=== PATIENT | female | born 1980 | race African-American/Black ===

== ENCOUNTER 2021-03-27 09:12 | Emergency (ER) | payer SELFPAY ==
[~2021-03-27] VITALS: Ht 165.1 cm; Wt 81.5 kg
[2021-03-27] MEDS ORDERED: KETOROLAC 60 MG/2 ML VIAL. IM ONE (09:45)
[2021-03-27] MEDS ORDERED: ORPHENADRINE CITRATE 60 MG/2 ML VIAL. IM ONE (09:45)
--- NOTE | 2021-03-27 09:52 | PHYS DOC ---
Past Medical History Past Medical History: No Pertinent History Past Surgical History: Tubal ligation Smoking Status: Current Every Day Smoker Alcohol Use: None Drug Use: None General Adult EDM: Chief Complaint: BACK PAIN OR INJURY HPI: HPI: Patient is a 40-year-old female who presents to the emergency department for right lower back pain that radiates down her leg. Pain started after she slipped and fell carrying groceries 1 month ago. She rates her pain 10 out of 10. No treatment prior to arrival. Patient denies any loss of bowel or bladder, saddle anesthesias, numbness or tingling in her extremities, urinary symptoms. Review of Systems: Review of Systems: : See HPI Musculoskeletal: See HPI Neurologic: See HPI Heart Score: C/O Chest Pain: N/A Risk Factors: Risk Factors: DM, Current or recent (<one month) smoker, HTN, HLP, family history of CAD, obesity. Risk Scores: Score 0 - 3: 2.5% MACE over next 6 weeks - Discharge Home Score 4 - 6: 20.3% MACE over next 6 weeks - Admit for Clinical Observation Score 7 - 10: 72.7% MACE over next 6 weeks - Early Invasive Strategies Allergies: Allergies: Allergies Coded Allergies Type Severity Reaction Last Updated Verified Penicillins Allergy Intermediate 04/19/15 Yes Physical Exam: PE: Constitutional: Well developed, well nourished, no acute distress, non-toxic appearance. [] HENT: Normocephalic, atraumatic, bilateral external ears normal, oropharynx moist, no oral exudates, nose normal. [] Eyes: PERRL, EOMI, conjunctiva normal, no discharge. [] Neck: Normal range of motion, no tenderness, supple, no stridor. [] Cardiovascular:Heart rate regular rhythm, no murmur [] Lungs & Thorax: Bilateral breath sounds clear to auscultation [] Abdomen: Bowel sounds normal, soft, no tenderness, no masses, no pulsatile masses. [] Skin: Warm, dry, no erythema, no rash. [] Back: No bony spinal tenderness, normal range of motion, positive right straight leg raise Extremities: No tenderness, no cyanosis, no clubbing, ROM intact, no edema. [] Neurologic: Alert and oriented X 3, normal motor function, normal sensory function, no focal deficits noted. [] Psychologic: Affect normal, judgement normal, mood normal. [] Current Patient Data: Labs: Laboratory Tests Test 03/27/21 09:42 03/27/21 09:45 Urine Collection Type Void Urine Color Yellow Urine Clarity Clear Urine pH 6.5 Urine Specific [place] 1.020 Urine Protein Negative mg/dL Urine Glucose (UA) Negative mg/dL Urine Ketones (Stick) Negative mg/dL Urine Blood Negative Urine Nitrite Negative Urine Bilirubin Negative Urine Urobilinogen Dipstick 0.2 mg/dL Urine Leukocyte Esterase Moderate Urine RBC Occ /HPF Urine WBC 11-20 /HPF Urine Squamous Epithelial Cells Mod /LPF Urine Bacteria Few /HPF Urine Mucus Marked /LPF Bedside Urine HCG, Qualitative Hcg negative Current Medications Medications (Trade) Dose Ordered Sig/Jesse Route PRN Reason Start Time Stop Time Status Last Admin Dose Admin Orphenadrine Citrate (Norflex) 60 mg 1X ONCE IM 03/27/21 09:45 03/27/21 09:48 DC 03/27/21 10:25 Ketorolac Tromethamine (Toradol Im) 60 mg 1X ONCE IM 03/27/21 09:45 03/27/21 09:48 DC 03/27/21 10:24 Vital Signs: Vital Signs Date Time Temp Pulse Resp B/P (MAP) Pulse Ox O2 Delivery O2 Flow Rate FiO2 03/27/21 09:23 98.3 86 12 111/70 (84) 100 Room Air 98.3 EKG: EKG: [] Radiology/Procedures: Radiology/Procedures: []REASON: r. lower back pain, post fall PROCEDURE: CT LUMBAR SPINE WO CONTRAST EXAM: Lumbar spine CT without contrast. HISTORY: Pain status post fall. TECHNIQUE: Computed tomographic images of the lumbar spine were obtained without contrast. Multiplanar reformatting was performed. *One or more of the following individualized dose reduction techniques were utilized for this examination: 1. Automated exposure control. 2. Adjustment of the mA and/or kV according to patient size. 3. Use of iterative reconstruction technique. COMPARISON: None. FINDINGS: There is a transitional lumbosacral segment. Based on the presence of suspected hypoplastic T12 ribs, this transitional segment is considered a partially lumbarized L5 segment with rudimentary L5-S1 disc. There is minimal lumbar levoscoliosis. There is no significant listhesis. There is mild multilevel endplate remodeling. There is a small round lucent lesion within the anterior aspect of L5, appearance of which favors a tiny hemangioma. There is a tiny bone island within the left iliac bone. There is subchondral sclerosis and vacuum phenomenon involving the sacroiliac joints. There are subchondral lucencies involving the bilateral iliac bones suggesting a component of sacroiliitis. There is a partially calcified lesion within the right adnexa adjacent to the right aspect of the uterine fundus. This appears to be separate from the uterine fundus and is likely ovarian rather than due to a pedunculated uterine fibroid. At T12-L1 and L1-L2, there is no stenosis. At L2-L3, there is a disc bulge. There is mild bilateral facet arthropathy. There is mild central canal stenosis. At L3-L4, there is a disc bulge. There is mild left greater than right facet arthropathy. There is mild central canal stenosis. At L4-L5, there is a posterior central disc protrusion superimposed on a disc bulge and endplate remodeling. There is a posterior L5 superior endplate depression likely due to a Schmorl's node. There is mild right facet arthropathy. There is mild left foraminal stenosis. There is moderate central canal stenosis. At L5-S1, there is a rudimentary disc. There is no stenosis. IMPRESSION: 1. Degenerative change involving the lumbar spine, described in detail above. This results in mild central canal stenosis at L2-L3 and L3-L4 and mild left foraminal and moderate central canal stenosis at L4-L5. 2. Transitional lumbosacral segment, considered a partially sacralized L5 segment for this dictation. Based on this numbering system, there are hypoplastic T12 ribs. This is a normal variant. 3. Findings suggesting a component of sacroiliitis. 4. Small partially calcified lesion within the right adnexa, likely ovarian in etiology. This can be further characterized with a pelvic sonogram if there is clinical concern. Electronically signed by: Gema Macdonald MD (03/27/2021 10:31 AM) [id number] DICTATED and SIGNED BY: GEMA MACDONALD MD DATE: 03/27/21 [id number] 0 Course & Med Decision Making: Course & Med Decision Making Pertinent Labs and Imaging studies reviewed. (See chart for details) [] Patient presents to the emergency department for right lower back pain that radiates down her leg. Patient has a positive right straight leg raise. This is consistent with sciatica. A CT scan of lumbar spine was performed as patient stated that the pain started after she fell 1 month ago. Patient treated with anti-inflammatory and muscle relaxer injection. Urinalysis and test performed prior to treatment. Patient CT of lumbar spine showed degenerative changes but no acute findings. Patient is noted to have a urinary tract infection to be treated with antibiotic. Patient advised to increase fluids, avoid bladder irritants and take anti-inflammatory medications for her back pain. VSS. No cva tenderness. She will be discharged home with a muscle relaxer. I discussed with patient all findings and diagnostic testing as well as the need to follow-up with PCP for further evaluation and treatment or return to the ER if any new or worsening symptoms. Strict return precautions were also discussed at length. Patient voiced understanding and agreement with the plan. Patient is hemodynamically stable at the time of disposition. Dragon Disclaimer: Dragon Disclaimer: This electronic medical record was generated, in whole or in part, using a voice recognition dictation system. Departure Departure Impression: Primary Impression: Sciatica Qualified Codes: M54.31 - Sciatica, right side Additional Impression: Urinary tract infection Qualified Codes: N30.00 - Acute cystitis without hematuria Disposition: HOME / SELF CARE / HOMELESS Condition: GOOD Referrals: NO PCP (PCP) Patient Instructions: Sciatica, Urinary Tract Infection Additional Instructions: You were seen in the emergency department for right lower back pain that radiates down your leg. CT scan of your lumbar spine was performed and this showed degenerative changes but no acute findings. You were treated in the ER with anti-inflammatory and a muscle relaxer injection. Your symptoms and your physical exam is consistent with sciatica. This is treated with anti- inflammatory medications and a muscle relaxer. Continue to take ibuprofen or naproxen at home. You are being discharged home with a muscle relaxer. Please use this as directed. This medication may cause sedation so do not take when you need to be alert, driving a vehicle or with alcohol. A urinalysis was p erformed and you were noted to have a urinary tract infection, this will be treated with an antibiotic. Please start and finish this completely. Increase your fluids. Avoid bladder irritants like sugary beverages, caffeine and alcohol. Follow-up with your primary care provider within a week if your symptoms persist. Return to the emergency department if you develop new injury, worsening of your pain, loss of bowel or bladder, tractable nausea or vomiting, blood in your stools or vomit, numbness or tingling in your groin or down your extremities or any new or worsening concerns. Scripts Nitrofurantoin Monohyd/M-Cryst (MACROBID 100 MG CAPSULE) 100 Mg Capsule 1 CAP PO BID for 5 Days, #10 CAP 0 Refills Prov: REE VALLEJO APRN 03/27/21 Cyclobenzaprine Hcl (CYCLOBENZAPRINE HCL) 5 Mg Tablet 1 TAB PO TID for muscle spasm for 7 Days, #21 TAB 0 Refills Prov: REE VALLEJO APRN 03/27/21 REE VALLEJO APRN Mar 27, 2021 09:51
--- NOTE | 2021-03-27 10:34 | RAD ---
EXAM: Lumbar spine CT without contrast. HISTORY: Pain status post fall. TECHNIQUE: Computed tomographic images of the lumbar spine were obtained without contrast. Multiplana r reformatting was performed. *One or more of the following individualized dose reduction techniques were utilized for this examina tion: 1. Automated exposure control. 2. Adjustment of the mA and/or kV according to patient size. 3. Use of iterative reconstruction technique. COMPARISON: None. FINDINGS: There is a transitional lumbosacral segment. Based on the presence of suspected hypoplastic T12 ribs, this transitional segment is considered a partially lumbarized L5 segment with rudimentary L5-S1 disc. There is minimal lumbar levoscoliosis. There is no significant listhesis. There is mild multilevel endplate remodeling. There is a small round lucent lesion within the anterior aspect of L5 , appearance of which favors a tiny hemangioma. There is a tiny bone island within the left iliac bon e. There is subchondral sclerosis and vacuum phenomenon involving the sacroiliac joints. There are subch ondral lucencies involving the bilateral iliac bones suggesting a component of sacroiliitis. There is a partially calcified lesion within the right adnexa adjacent to the right aspect of the uterine fun dus. This appears to be separate from the uterine fundus and is likely ovarian rather than due to a p edunculated uterine fibroid. At T12-L1 and L1-L2, there is no stenosis. At L2-L3, there is a disc bulge. There is mild bilateral facet arthropathy. There is mild central can al stenosis. At L3-L4, there is a disc bulge. There is mild left greater than right facet arthropathy. There is mi ld central canal stenosis. At L4-L5, there is a posterior central disc protrusion superimposed on a disc bulge and endplate dior deling. There is a posterior L5 superior endplate depression likely due to a Schmorl's node. There is mild right facet arthropathy. There is mild left foraminal stenosis. There is moderate central canal stenosis. At L5-S1, there is a rudimentary disc. There is no stenosis. IMPRESSION: 1. Degenerative change involving the lumbar spine, described in detail above. This results in mild ce ntral canal stenosis at L2-L3 and L3-L4 and mild left foraminal and moderate central canal stenosis a t L4-L5. 2. Transitional lumbosacral segment, considered a partially sacralized L5 segment for this dictation. Based on this numbering system, there are hypoplastic T12 ribs. This is a normal variant. 3. Findings suggesting a component of sacroiliitis. 4. Small partially calcified lesion within the right adnexa, likely ovarian in etiology. This can be further characterized with a pelvic sonogram if there is clinical concern. Electronically signed by: Gema Macdonald MD (03/27/2021 10:31 AM) [id number]
[2021-03-27 10:40] LABS: BILIRUBIN,URINE NEGATIVE (NEG); CLARITY,URINE CLEAR; COLOR,URINE YELLOW; NITRITE,URINE NEGATIVE (NEG); PH,URINE 6.5 (<5.0-8.0); PROTEIN,URINE NEGATIVE (NEG-TRACE); UROBILINOGEN,URINE 0.2 mg/dL (0.2 mg/dL)
[2021-03-27 11:05] LABS: BACTERIA,URINE FEW /HPF (0-FEW); RBC,URINE OCC /HPF (0-2)
[2021-03-27 11:10] VITALS: BP 119/73
[2021-03-27] MEDS ORDERED: NITR100C62 PO (11:29)
[2021-03-27] MEDS ORDERED: CYCL5TAB PO (11:29)
== END 2021-03-27 11:46 | disposition home or self-care (01) ==
LOC: ER 09:12
DX: N30.00 Acute cystitis without hematuria (principal); M54.41 Lumbago with sciatica, right side; F17.200 Nicotine dependence, unspecified, uncomplicated; Z88.0 Allergy status to penicillin
CPT/HCPCS: 72131; 81001; 81025; 87086; 96372; 99284; J1885; J2360